=== PATIENT | male | born 1960 ===

== ENCOUNTER 2023-11-21 20:00 | Outpatient (CLI) | payer OTHER, SELFPAY | END 2023-11-21 20:01 | disposition home or self-care (01) | LOC: SLEEP 23:54 | PROVIDERS: Family Provider Nurse Practitioner Family; PCP Nurse Practitioner Family; Visit Provider Specialist | DX: G47.33 Obstructive sleep apnea (adult) (pediatric) (principal) | CPT/HCPCS: 95811 ==